=== PATIENT | male | born 2000 | race Caucasian/White ===

== ENCOUNTER → 2022-12-06 | Outpatient (CLI) | payer OTHER ==
[~2022-12-06] MED LIST: ISOVUE-370 76% 100ML VIAL As Ordered ONE
== END ==
LOC: M RAD 07:41
PROVIDERS: ATTEND Physician Assistant
DX: R22.9 Localized swelling, mass and lump, unspecified (principal); F17.200 Nicotine dependence, unspecified, uncomplicated